=== PATIENT | male | born 1990 | race Caucasian/White ===

== ENCOUNTER 2018-02-13 01:25 | Emergency (ER) | payer OTHER ==
[2018-02-13 01:38] VITALS: BP 122/80; PULSE 78; RESP 16; TEMP 98.9
[2018-02-13] MEDS ORDERED: ACETAMINOPHEN TAB 500 MG TAB PO STA (02:12)
--- NOTE | 2018-02-13 02:14 | ED ---
Head Injury HPI - General Chief complaint: Head Injury Stated complaint: FALL,HEAD LAC Time Seen by Provider: 02/13/18 01:39 Source: patient Mode of arrival: ambulatory Limitations: no limitations - History of Present Illness Initial comments: 28-year-old male patient presented to the emergency department today for evaluation after sustaining a head injury. Patient states that he was messing around at a friend's house, swinging around in a stripper pole when the pole broke away from the ceiling and he fell backwards striking his head on a speaker. Patient denies any loss of consciousness with the injury. States that he did sustain a laceration to the posterior scalp but was able to get the bleeding under control. Patient denies any current headache, dizziness, blurred vision, or double vision. Denies any nausea or vomiting. Patient is also complaining of some neck soreness. Denies any radiation of the pain down his arms. Denies any numbness or tingling in his arms or hands. Denies any use of anticoagulant medications. Denies any other injuries. Patient denies any back pain, chest pain, shortness of breath, dizziness, weakness, abdominal pain, nausea, vomiting, or difficulties with bowel movements or urination. - Related Data Allergies/Adverse reactions: Allergies Allergy/AdvReac Type Severity Reaction Status Date / Time No Known Allergies Allergy Verified 02/13/18 01:38 Review of Systems ROS Statement: Those systems with pertinent positive or pertinent negative responses have been documented in the HPI. ROS Other: All systems not noted in ROS Statement are negative. Past Medical History Past Medical History: No Reported History History of Any Multi-Drug Resistant Organisms: None Reported Past Surgical History: No Surgical Hx Reported Past Psychological History: No Psychological Hx Reported Smoking Status: Current some day smoker Past Alcohol Use History: Occasional Past Drug Use History: Marijuana General Exam Limitations: no limitations General appearance: alert, in no apparent distress, other (This is a well- developed, well-nourished adult male patient in no acute distress. Vital signs upon presentation are temperature 98.9F, pulse 78, respirations 16, blood pressure 122/80, pulse ox 99% on room air.) Head exam: Present: other ( has 2 cm laceration to the left posterior scalp. Bleeding is under control. No bony step-off or deformity noted to palpation around the site.) Eye exam: Present: normal appearance, PERRL, EOMI. Absent: scleral icterus, conjunctival injection, periorbital swelling ENT exam: Present: normal exam, normal oropharynx, mucous membranes moist Neck exam: Present: normal inspection, full ROM. Absent: tenderness, meningismus, lymphadenopathy Respiratory exam: Present: normal lung sounds bilaterally. Absent: respiratory distress, wheezes, rales, rhonchi, stridor Cardiovascular Exam: Present: regular rate, normal rhythm, normal heart sounds. Absent: systolic murmur, diastolic murmur, rubs, gallop, clicks GI/Abdominal exam: Present: soft, normal bowel sounds. Absent: distended, tenderness, guarding, rebound, rigid Neurological exam: Present: alert, oriented X3, CN II-XII intact, other ( Strength in all 4 extremities is 5/5.) Psychiatric exam: Present: normal affect, normal mood Skin exam: Present: warm, dry, intact, normal color. Absent: rash Course Vital Signs 02/13/18 01:34 Temperature 98.9 F Pulse Rate 78 Respiratory 16 Rate Blood Pressure 122/80 O2 Sat by Pulse 99 Oximetry Procedures - Laceration Laceration #1 Indication: laceration Site: scalp Size (cm): 2 Description: linear Depth: simple, single layer Size of Sutures: other ([place]) Number of Sutures: 4 Patient Tolerated Procedure: well, no complications Medical Decision Making - Medical Decision Making 28-year-old male patient presents to the emergency department today for evaluation after sustaining a laceration and head injury. Physical examination did reveal a 2 cm laceration to the left posterior scalp. Patient is neurologically intact. Patient does admit to drinking alcohol but is clinically sober, he is alert and appropriate, answers questions appropriately. I did offer to provide CT of the brain and C-spine however he refused stating that he feels well. Did place for cynthia to the laceration. Patient tolerated this well. Is instructed to return here in 7 days for staple removal. He is instructed to follow-up with his primary care physician for recheck in 1-2 days. Return parameters were discussed in detail. He states he will return if his symptoms should change or worsen. He verbalizes understanding and agrees with this plan. Disposition Clinical Impression: Scalp laceration, Neck strain Disposition: HOME SELF-CARE Condition: Good Instructions: Laceration (ED), Head Injury (ED), Staple Care (ED) Additional Instructions: Monitor for signs or symptoms of worsening head injury including but not limited to severe headache, nausea, vomiting, blurred vision, double vision, dizziness, weakness, or confusion. Take Tylenol for pain control. Follow-up with your primary care physician for recheck in 1-2 days. Return here immediately for any new, worsening, or concerning symptoms. Is patient prescribed a controlled substance at d/c from ED?: No Referrals: Kaitlyn La MD [STAFF PHYSICIAN] - 1-2 days Time of Disposition: 02:13
== END 2018-02-13 02:22 | disposition home or self-care (01) ==
LOC: EC 01:25
DX: S01.01XA Laceration without foreign body of scalp, initial encounter (principal); S16.1XXA Strain of muscle, fascia and tendon at neck level, initial encounter; F17.200 Nicotine dependence, unspecified, uncomplicated; W01.198A Fall on same level from slipping, tripping and stumbling with subsequent striking against other object, initial encounter; Y93.89 Activity, other specified; Y92.009 Unspecified place in unspecified non-institutional (private) residence as the place of occurrence of the external cause
CPT/HCPCS: 12001; 99283